=== PATIENT | female | born 1990 | race Caucasian/White ===

== ENCOUNTER → 2018-12-07 | Day surgery (SDC) | payer OTHER ==
--- NOTE | 2018-12-08 17:45 | PATH ---
Surgical Pathology Report Patient Name: SANJU MAN [facility]. Rec. #: [id number] /Age/Gender: 1990 (Age: 28) / F Account: [id number] Location: [facility]OLOGY [facility] Taken: 12/07/2018 Received: 12/07/2018 Reported: 12/08/2018 Physicians: Debora Uribe M.D. 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 Electronically Signed Leona Tang M.D. Gross Description Received in formalin labeled "left 11:00," are 3 altamirano-yellow, cylindrical portions of fibroadipose tissue ranging from 0.7-0.9 cm in length and averaging 0.1 cm in diameter. The specimens are submitted in toto in one cassette. Time to formalin fixation: Less than one minute Total formalin fixation time: Approximately 8 hours. /12/07/2018 [facility]/12/07/2018
== END | disposition home or self-care (01) ==
LOC: JRADUS 08:50 → JRADUS-SUR 08:50
PROVIDERS: ATTEND Obstetrics & Gynecology
PROC: 0HBU3ZX Excision of Left Breast, Percutaneous Approach, Diagnostic (ICD-10-PCS; principal; 2018-12-07)
DX: D24.2 Benign neoplasm of left breast (principal)
CPT/HCPCS: 19083; 87899; 88305-TC; A4648

== ENCOUNTER 2020-02-08 16:45 | Inpatient (IN) | payer OTHER ==
[2020-02-08 18:18] LABS: BASO % 0.2 % (0-2.0); EOS % 0.9 % (0-4.5); HEMATOCRIT 38.5 % (32.4-45.2); HEMOGLOBIN 13.1 GM/dL (10.7-15.3); LYMPH % 19.2 % (8-40); MCH 29.9 pg (25.7-33.7); MEAN CELL VOLUME 87.8 fl (80-96); MEAN PLT VOLUME 9.7 fl (7.5-11.1); MONO % 5.2 % (3.8-10.2); NEUT % 74.5 % (42.8-82.8); PLATELET COUNT 200 K/MM3 (134-434); RBC 4.38 M/mm3 (3.60-5.2); RDW 13.4 % (11.6-15.6); WHITE BLOOD COUNT 13.7 K/mm3 (4.0-10.0)
[2020-02-08 18:22] LABS: INR 0.87 (0.83-1.09); PROTHROMBIN TIME (PATIENT) 10.2 SEC (9.7-13.0)
[2020-02-08 18:25] LABS: ACTIVATED PTT 23.1 SECONDS (25.2-36.5)
--- OUTSIDE RECORDS SUMMARY | 2020-02-08 18:30 | XMS ---
:1990 Author Organization [facility] Support Name Relationship Address Phone LA BARGE JANE Unavailable [address] [place] [address] CHERRI Unavailable Unavailable Unavailable CHARLOTTE MAN BROTHER [address] [place] [address] Re-disclosure Warning The records that you are about to access may contain information from federally- assisted alcohol or drug abuse programs. If such information is present, then the following federally mandated warning applies: This information has been disclosed to you from records protected by federal confidentiality rules (42 CFR part 2). The federal rules prohibit you from making any further disclosure of this information unless further disclosure is expressly permitted by the written consent of the person to whom it pertains or as otherwise permitted by 42 CFR part 2. A general authorization for the release of medical or other information is NOT sufficient for this purpose. The Federal rules restrict any use of the information to criminally investigate or prosecute any alcohol or drug abuse patient.The records that you are about to access may contain highly sensitive health information, the redisclosure of which is protected by Article 27-F of the [facility] Public Health law. If you continue you may haveaccess to information: Regarding HIV / AIDS; Provided by facilities licensed or operated by the [facility] Office of Mental Health; or Provided by the [facility] Office for People With Developmental Disabilities. If such information is present, then the following [facility] mandated warning applies: This information has been disclosed to you from confidential records which are protected by state law. State law prohibits you from making any further disclosure of this information without the specific written consent of the person to whom it pertains, or as otherwise permitted by law. Any unauthorized further disclosure in violation of state law may result in a fine or shelter sentence or both. A general authorization for the release of medical or other information is NOT sufficient authorization for further disclosure. Insurance Providers Payer name Policy type Policy ID Covered Covered alliance party's Policy P sandi / Coverage alliance party ID relationship to Rick Inf ormation type rick SELF PAY INSURANCE [employer] [id number] SP [id number] BROTHERS Results ID Date Data Source [id number] 12/27/2019 07:47:00 PM EDT [facility] Name Value Range Interpretation Code Description Data Stephanie rce(s) Supporting Document(s ) SARS-COV-2 [facility] QL TERRIE+PROBE This lab was ordered by [facility] KATT DOUGLAS and reported by [facility]. Procedure
[2020-02-08 18:51] LABS: BLOOD UREA NITROGEN 12.3 mg/dL (7-18); CALCIUM 9.3 mg/dL (8.5-10.1); CREATININE 0.9 mg/dL (0.55-1.3); POTASSIUM 3.8 mmol/L (3.5-5.1)
[2020-02-08] MEDS ORDERED: CITRIC ACID/SODIUM CITRATE 30 ML UNIT-DOSE CUP PO ONE (19:40)
[2020-02-08] MEDS ORDERED: METHYLERGONOVINE MALEATE 0.2 MG/1 ML AMP IM PRN (19:43)
[2020-02-08] MEDS ORDERED: BENZOCAINE 28 GM HEMORRHOIDAL OINTMENT PR PRN (19:43)
[2020-02-08] MEDS ORDERED: WITCH HAZEL 50% (TUCKS) 40 PAD/JAR PAD TP PRN (19:43)
[2020-02-08] MEDS ORDERED: diphenhydrAMINE HCL 25 MG CAPSULE (FP) PO PRN (19:43)
[2020-02-08] MEDS ORDERED: BENZOCAINE 20% 57 GM BOTTLE TP PRN (19:43)
[2020-02-08] MEDS ORDERED: ELECTROLYTE-148 SOLN 1,000 ML IV SCH (19:45)
--- NOTE | 2020-02-08 19:52 | HP ---
Past Medical History - Primary Care Physician PCP:: Jenny Thorne - Admission Chief Complaint: IUP at 40 week. obesity. Desires Section History of Present Illness: 29 yo G 1 EDC 02/08/2020 EGA 40 with obesity who desires CS History Source: Patient Limitations to Obtaining History: No Limitations - Past Medical History ...: 1 ...Para: 0 ...Term: 0 ...: 0 ...Spon : 0 ...Induced : 0 ...Living Children: 0 ...Multiple Gestation: 0 ... Weeks Gestation by Dates: 40.0 ...EDC by Dates: 02/08/20 - Past Surgical History Past Surgical History: Yes: None - Smoking History Smoking history: Never smoked - Alcohol/Substance Use Hx Alcohol Use: No History of Substance Use: reports: None Home Medications - Allergies Allergies/Adverse Reactions: Allergies Allergy/AdvReac Type Severity Reaction Status Date / Time No Known Allergies Allergy Verified 02/08/20 17:33 - Home Medications Home Medications: Ambulatory Orders Vitamins (Sjr) - 1 tab PO DAILY 02/08/20 Review of Systems - Review of Systems Constitutional: reports: No Symptoms Eyes: reports: No Symptoms HENT: reports: No Symptoms Neck: reports: No Symptoms Cardiovascular: reports: No Symptoms Respiratory: reports: No Symptoms Gastrointestinal: reports: No Symptoms Genitourinary: reports: No Symptoms Breasts: reports: No Symptoms Reported Musculoskeletal: reports: No Symptoms Integumentary: reports: No Symptoms Neurological: reports: No Symptoms Endocrine: reports: No Symptoms Hematology/Lymphatic: reports: No Symptoms Psychiatric: reports: No Symptoms Physical Exam - Maternity Vital Signs: Vital Signs Temperature 98.6 F 02/08/20 17:41 Pulse Rate 95 H 02/08/20 17:41 Respiratory Rate 17 02/08/20 17:41 Blood Pressure 117/51 L 02/08/20 17:41 O2 Sat by Pulse Oximetry (%) - Labs Lab Results: CBC, BMP 02/08/20 17:00 02/08/20 17:00 Hemorrhage Risk Assessment - Risk Factors Risk Score: 0 Risk Level: Low Risk Problem List - Problems (1) Obesity affecting in third trimester Code(s): O99.213 - OBESITY COMPLICATING , THIRD TRIMESTER (2) 40 weeks gestation of Code(s): Z3A.40 - 40 WEEKS GESTATION OF (3) Delivery by elective section Code(s): O82 - ENCOUNTER FOR DELIVERY WITHOUT INDICATION Assessment/Plan IUP at 40 week obesity desires CS Plan Section
[2020-02-08] MEDS ORDERED: OXYTOCIN 20 UNITS in 0.9% NS 20 UNIT/1,000 ML INFUS.BAG IV ONE ×2 (20:21→20:30)
[2020-02-08] MEDS ORDERED: CEFAZOLIN 2 GM/D5W 2 GM/50 ML ML IVPB ONE (20:30)
[2020-02-08] MEDS ORDERED: morphine SULFATE/PF 0.5 MG/ML (2cc Syringe - QUVA) ONE (20:32)
[2020-02-08] MEDS ORDERED: PHENYLEPHRINE HCL 10 MG/1 ML SINGLE DOSE VIAL ONE (20:41)
[2020-02-08] MEDS ORDERED: OXYTOCIN 10 UNITS/ML VIAL ONE (20:51)
[2020-02-08] MEDS ORDERED: KETOROLAC TROMETHAMINE 30 MG/1 ML VIAL ONE (20:56)
[2020-02-08] MEDS: OXYTOCIN 20 UNITS in 0.9% NS 20 UNIT/1,000 ML INFUS.BAG IV SCH (21:30)
[2020-02-08] MEDS ORDERED: IBUPROFEN 600 MG TABLET (FP) PO PRN (21:37)
[2020-02-08] MEDS ORDERED: ONDANSETRON 4 MG/2 ML VIAL IVPUSH PRN (21:37)
[2020-02-08] MEDS ORDERED: ACETAMINOPHEN 325 MG TABLET (FP) PO PRN (21:37)
[2020-02-08 22:07] LABS: CORD BASE EXCESS -5.5 mmol/L (0-2); CORD HCO3 20.5 mmHg (20-29); CORD PCO2 41.8 mmHg (30-78); CORD PCO2 51.4 mmHg (30-78); CORD pH 7.229 (7.14-7.44); CORD pH 7.308 (7.14-7.44)
--- NOTE | 2020-02-08 22:11 | OP ---
Operative Note - Note: Operative Date: 02/08/20 Pre-Operative Diagnosis: obesity in pregancy. elective section. 40 week Operation: Low transverse section Findings: live infant Post-Operative Diagnosis: Same as Pre-op Surgeon: Jenny Thorne Embryology Professor: Rey Ramos Anesthesia: Spinal Estimated Blood Loss (mls): 700 Operative Report Dictated: Yes
[2020-02-08] MEDS: IBUPROFEN 800 MG/8 ML IJ IVPB PRN (22:19)
[2020-02-08] MEDS ORDERED: IBUPROFEN 800 MG/8 ML IJ IVPB ONE (22:21)
[2020-02-09] MEDS: IBUPROFEN 800 MG/8 ML IJ IVPB PRN (06:14)
--- NOTE | 2020-02-09 06:59 | PN ---
Progress Note (SOAP) - Subjective Chief Complaint: Pt doing well - Current Medications Current Medications: Active Medications Acetaminophen (Tylenol -) 650 mg PO Q4H PRN PRN Reason: FEVER Acetaminophen (Tylenol -) 650 mg PO Q4H PRN PRN Reason: PAIN-PACU Benzocaine (Americaine 20% [place] -) 1 spray TP PRN PRN PRN Reason: Pain - Topical Benzocaine (Americaine Ointment -) 1 applic DE PRN PRN PRN Reason: Pain - Topical Bisacodyl (Dulcolax Suppository -) 10 mg DE PRN PRN PRN Reason: CONSTIPATION Diphenhydramine HCl (Benadryl -) 25 mg PO Q6H PRN PRN Reason: FOR ITCHING Hydromorphone HCl (Dilaudid -) 4 mg PO Q4H PRN PRN Reason: PAIN LEVEL 7 - 10 Stop: 02/10/20 19:42 Oxytocin/Sodium Chloride (Normal Saline+20 Units Oxytocin -) 20 unit in 1,000 mls @ 125 mls/hr IV [facility]IR [facility] Last Admin: 02/08/20 21:30 Dose: 125 mls/hr Documented by: Ibuprofen (Motrin -) 600 mg PO Q4H PRN PRN Reason: FEVER Ibuprofen (Caldolor Injection -) 800 mg IVPB Q6H PRN PRN Reason: Fever - If PO not effective. Last Admin: 02/09/20 06:14 Dose: 800 mg Documented by: Ibuprofen (Motrin -) 600 mg PO Q4H PRN PRN Reason: PAIN-PACU Methylergonovine Maleate (Methergine Injection -) 0.2 mg IM Q4H PRN PRN Reason: EXCESSIVE BLEEDING Ondansetron HCl (Zofran Injection) 4 mg IVPUSH Q4H PRN PRN Reason: NAUSEA Oxycodone HCl (Roxicodone -) 5 mg PO Q4H PRN PRN Reason: PAIN LEVEL 1 - 3 Oxycodone HCl (Roxicodone -) 10 mg PO Q4H PRN PRN Reason: PAIN LEVEL 4 - 6 Senna/Docusate Sodium (Pericolace -) 2 tablet PO HS PRN PRN Reason: CONSTIPATION Simethicone (Mylicon -) 80 mg PO Q4H PRN PRN Reason: GAS Witch Antoinette/Glycerin (Tucks Pads -) 1 pad TP PRN PRN PRN Reason: Pain - Topical - Objective Vital Signs: Vital Signs Temperature 98.6 F 02/09/20 06:19 Pulse Rate 74 02/09/20 06:19 Respiratory Rate 20 02/09/20 06:19 Blood Pressure 95/64 02/09/20 06:19 O2 Sat by Pulse Oximetry (%) 98 02/08/20 23:49 Constitutional: Yes: Well Nourished, No Distress Gastrointestinal: Yes: WNL, Soft ....Post : Yes: Uterus firm, Uterus non-tender Labs Lab Results: CBCD WBC 13.7 K/mm3 (4.0-10.0) H 02/08/20 17:00 RBC 4.38 M/mm3 (3.60-5.2) 02/08/20 17:00 Hgb 13.1 GM/dL (10.7-15.3) 02/08/20 17:00 Hct 38.5 % (32.4-45.2) 02/08/20 17:00 MCV 87.8 fl (80-96) 02/08/20 17:00 MCHC 34.0 g/dl (32.0-36.0) 02/08/20 17:00 RDW 13.4 % (11.6-15.6) 02/08/20 17:00 Plt Count 200 K/MM3 (134-434) 02/08/20 17:00 MPV 9.7 fl (7.5-11.1) 02/08/20 17:00 CMP Sodium 136 mmol/L (136-145) 02/08/20 17:00 Potassium 3.8 mmol/L (3.5-5.1) 02/08/20 17:00 Chloride 103 mmol/L (98-107) 02/08/20 17:00 Carbon Dioxide 20 mmol/L (21-32) L 02/08/20 17:00 Anion Gap 13 MMOL/L (8-16) 02/08/20 17:00 BUN 12.3 mg/dL (7-18) 02/08/20 17:00 Creatinine 0.9 mg/dL (0.55-1.3) 02/08/20 17:00 Random Glucose 70 mg/dL (74-106) L 02/08/20 17:00 Calcium 9.3 mg/dL (8.5-10.1) 02/08/20 17:00 Problem List - Problems (1) Obesity affecting in third trimester Problems reviewed: Yes Code(s): O99.213 - OBESITY COMPLICATING , THIRD TRIMESTER (2) 40 weeks gestation of Problems reviewed: Yes Code(s): Z3A.40 - 40 WEEKS GESTATION OF (3) Delivery by elective section Problems reviewed: Yes Code(s): O82 - ENCOUNTER FOR DELIVERY WITHOUT INDICATION Assessment/Plan POd 1 stqable Plan CBC OOB ambulate
--- NOTE | 2020-02-09 08:10 | PN ---
Progress Note (short form) - Note Progress Note: Anesthesia Post op/Pain Pt seen and examined S:Alert and awake comfortable O: Vital Signs Temperature 98.6 F 02/09/20 06:19 Pulse Rate 74 02/09/20 06:19 Respiratory Rate 02/09/20 06:19 Blood Pressure 95/64 02/09/20 06:19 O2 Sat by Pulse Oximetry (%) 98 02/08/20 23:49 CBC, BMP 02/08/20 17:00 02/08/20 17:00 A/P: Current Active Problems 40 weeks gestation of (Acute) Delivery by elective section (Acute) Obesity affecting in third trimester (Acute) s/p c section Doing well post op Continue current care Magan Guerrero MD
[2020-02-09 08:40] LABS: HEMATOCRIT 30.6 % (32.4-45.2); HEMOGLOBIN 10.5 GM/dL (10.7-15.3); MCH 30.2 pg (25.7-33.7); MCHC 34.2 g/dl (32.0-36.0); MEAN CELL VOLUME 88.3 fl (80-96); MEAN PLT VOLUME 9.5 fl (7.5-11.1); PLATELET COUNT 156 K/MM3 (134-434); RBC 3.46 M/mm3 (3.60-5.2); RDW 13.6 % (11.6-15.6); WHITE BLOOD COUNT 14.3 K/mm3 (4.0-10.0)
[2020-02-09] MEDS: ACETAMINOPHEN 325 MG TABLET (FP) PO PRN ×2 (13:03→21:07)
[2020-02-09] MEDS: SIMETHICONE 80 MG TAB.CHEW (FP) PO PRN ×2 (13:04→21:06)
[2020-02-09] MEDS: IBUPROFEN 600 MG TABLET (FP) PO PRN ×2 (13:04→21:07)
[2020-02-09] MEDS ORDERED: BISACODYL 10 MG SUPP.RECT PR PRN (19:43)
[2020-02-09] MEDS ORDERED: oxyCODONE HCL 5 MG TABLET PO PRN ×2 (19:43)
[2020-02-09] MEDS ORDERED: HYDROmorphone HCL 2 MG TABLET PO PRN (19:43)
[2020-02-09] MEDS: OXYTOCIN 20 UNITS in 0.9% NS 20 UNIT/1,000 ML INFUS.BAG IV SCH (22:11)
[2020-02-10] MEDS: IBUPROFEN 600 MG TABLET (FP) PO PRN ×5 (04:31→21:33)
[2020-02-10] MEDS: ACETAMINOPHEN 325 MG TABLET (FP) PO PRN ×4 (04:32→21:34)
[2020-02-10] MEDS: SIMETHICONE 80 MG TAB.CHEW (FP) PO PRN ×4 (04:32→21:33)
[2020-02-10] MEDS ORDERED: SENNOSIDES/DOCUSATE COMBO (SENNA PLUS) TABLET (UD) PO PRN (22:00)
--- NOTE | 2020-02-11 05:15 | PN ---
Post Note - Post Date of Delivery: 02/08/20 Post Day: 2 Vital Signs: Vital Signs - 24 hr 02/10/20 02/10/20 10:00 22:00 Temperature 98.8 F 98.7 F Pulse Rate 76 82 Respiratory 20 18 Rate Blood Pressure 111/67 97/37 L O2 Sat by Pulse 99 Oximetry (%) - Subjective Subjective: No Complaints - Objective Afebrile: Yes Breast: Not engorged Abdomen: Soft, Other (incision intact) Uterus: Fundus firm, Non-tender Vagina: Scant lochia Extremities: Non-tender - Assessment/Plan (1) Obesity affecting in third trimester Assessment: Other (POD 2) (3) Delivery by elective section Assessment: Other (POD2 SP VS) Plan: Routine Care
--- NOTE | 2020-02-11 05:16 | PN ---
Progress Note (SOAP) - Subjective Chief Complaint: Pt doing well - Current Medications Current Medications: Active Medications Acetaminophen (Tylenol -) 650 mg PO Q4H PRN PRN Reason: FEVER Last Admin: 02/10/20 21:34 Dose: 650 mg Documented by: Acetaminophen (Tylenol -) 650 mg PO Q4H PRN PRN Reason: PAIN-PACU Last Admin: 02/10/20 09:06 Dose: 650 mg Documented by: Benzocaine (Americaine 20% [place] -) 1 spray TP PRN PRN PRN Reason: Pain - Topical Benzocaine (Americaine Ointment -) 1 applic GA PRN PRN PRN Reason: Pain - Topical Bisacodyl (Dulcolax Suppository -) 10 mg GA PRN PRN PRN Reason: CONSTIPATION Diphenhydramine HCl (Benadryl -) 25 mg PO Q6H PRN PRN Reason: FOR ITCHING Oxytocin/Sodium Chloride (Normal Saline+20 Units Oxytocin -) 20 unit in 1,000 mls @ 125 mls/hr IV ASDIR [facility] Last Admin: 02/09/20 22:11 Dose: Not Given Documented by: Ibuprofen (Motrin -) 600 mg PO Q4H PRN PRN Reason: FEVER Last Admin: 02/10/20 21:33 Dose: 600 mg Documented by: Ibuprofen (Motrin -) 600 mg PO Q4H PRN PRN Reason: PAIN-PACU Methylergonovine Maleate (Methergine Injection -) 0.2 mg IM Q4H PRN PRN Reason: EXCESSIVE BLEEDING Ondansetron HCl (Zofran Injection) 4 mg IVPUSH Q4H PRN PRN Reason: NAUSEA Oxycodone HCl (Roxicodone -) 5 mg PO Q4H PRN PRN Reason: PAIN LEVEL 1 - 3 Oxycodone HCl (Roxicodone -) 10 mg PO Q4H PRN PRN Reason: PAIN LEVEL 4 - 6 Senna/Docusate Sodium (Pericolace -) 2 tablet PO HS PRN PRN Reason: CONSTIPATION Last Admin: 02/10/20 21:36 Dose: 2 tablet Documented by: Simethicone (Mylicon -) 80 mg PO Q4H PRN PRN Reason: GAS Last Admin: 02/10/20 21:33 Dose: 80 mg Documented by: Cherri Curry/Glycerin (Tucks Pads -) 1 pad TP PRN PRN PRN Reason: Pain - Topical - Objective Vital Signs: Vital Signs Temperature 98.7 F 02/10/20 22:00 Pulse Rate 82 02/10/20 22:00 Respiratory Rate 18 02/10/20 22:00 Blood Pressure 97/37 L 02/10/20 22:00 O2 Sat by Pulse Oximetry (%) 99 02/10/20 10:00 Constitutional: Yes: Well Nourished, No Distress, Calm ....Post : Yes: Uterus firm, Uterus non-tender Breast(s): Yes: WNL Extremities: Yes: WNL Peripheral Pulses WNL: No Edema: No Wound/Incision: Yes: Steri Strips, Open to air Neurological: Yes: WNL, Alert, Oriented Labs Lab Results: CBCD WBC 14.3 K/mm3 (4.0-10.0) H 02/09/20 08:05 RBC 3.46 M/mm3 (3.60-5.2) L 02/09/20 08:05 Hgb 10.5 GM/dL (10.7-15.3) L 02/09/20 08:05 Hct 30.6 % (32.4-45.2) L D 02/09/20 08:05 MCV 88.3 fl (80-96) 02/09/20 08:05 MCHC 34.2 g/dl (32.0-36.0) 02/09/20 08:05 RDW 13.6 % (11.6-15.6) 02/09/20 08:05 Plt Count 156 K/MM3 (134-434) D 02/09/20 08:05 MPV 9.5 fl (7.5-11.1) 02/09/20 08:05 CMP Sodium 136 mmol/L (136-145) 02/08/20 17:00 Potassium 3.8 mmol/L (3.5-5.1) 02/08/20 17:00 Chloride 103 mmol/L (98-107) 02/08/20 17:00 Carbon Dioxide 20 mmol/L (21-32) L 02/08/20 17:00 Anion Gap 13 MMOL/L (8-16) 02/08/20 17:00 BUN 12.3 mg/dL (7-18) 02/08/20 17:00 Creatinine 0.9 mg/dL (0.55-1.3) 02/08/20 17:00 Random Glucose 70 mg/dL (74-106) L 02/08/20 17:00 Calcium 9.3 mg/dL (8.5-10.1) 02/08/20 17:00 Problem List - Problems (1) Obesity affecting in third trimester Code(s): O99.213 - OBESITY COMPLICATING , THIRD TRIMESTER (2) 40 weeks gestation of Code(s): Z3A.40 - 40 WEEKS GESTATION OF (3) Delivery by elective section Problems reviewed: Yes Code(s): O82 - ENCOUNTER FOR DELIVERY WITHOUT INDICATION Assessment/Plan POd 3 SP CS stable Plan DC Home
[2020-02-11] MEDS: ACETAMINOPHEN 325 MG TABLET (FP) PO PRN ×2 (06:40→11:00)
[2020-02-11] MEDS: SIMETHICONE 80 MG TAB.CHEW (FP) PO PRN (06:40)
[2020-02-11] MEDS: IBUPROFEN 600 MG TABLET (FP) PO PRN (06:41)
[2020-02-11 08:33] LABS: HEMATOCRIT 32.1 % (32.4-45.2); HEMOGLOBIN 10.7 GM/dL (10.7-15.3); MCH 29.9 pg (25.7-33.7); MCHC 33.4 g/dl (32.0-36.0); MEAN CELL VOLUME 89.4 fl (80-96); MEAN PLT VOLUME 9.1 fl (7.5-11.1); PLATELET COUNT 189 K/MM3 (134-434); RBC 3.59 M/mm3 (3.60-5.2); WHITE BLOOD COUNT 12.9 K/mm3 (4.0-10.0)
[2020-02-11 10:02] VITALS: BP 107/66; PULSE 79; TEMP 98.6
--- NOTE | 2020-02-13 09:50 | OP ---
DATE OF OPERATION: 02/08/2020 PREOPERATIVE DIAGNOSIS: Obesity in , elective section. OPERATION: Low transverse primary section. POSTOPERATIVE DIAGNOSIS: Live female infant. SURGEON: Alejandra Thorne MD [employer] SPECIALIST: JULIO Choi; unavailable. ANESTHESIA: Spinal. PROCEDURE: Patient was taken to the operating room, placed in the supine position, prepped and draped in the usual sterile fashion. Timeout was performed in accordance with hospital regulation. Scalpel was then used to make a Pfannenstiel skin incision. Cautery was then used to go through the layers of the abdominal wall to the level of the fascia. Fascia was cut in the midline and cautery was then used to open the fascia in smiling fashion. Randell was then used to bluntly and sharply dissect the rectus muscle off the fascia. Muscle was split in the midline. Peritoneal cavity was then entered and carried up and downward. Bladder retractor was then placed. Scalpel was then used to make a low transverse uterine incision. Incision was carried upward using bandage scissors. A live female was delivered in OP position. Nose and mouth suction performed. Shoulders were delivered without difficulty. Cord was clamped and cut. Cord blood obtained. Cord pH obtained. Placenta was manually extracted from the uterus. was handed to van cdl driver. The uterus was exteriorized and cleaned with clean lap pads. Uterine incision was then closed using 0 Biosyn suture, first layer continuous interlocking, second layer imbricating the first layer. Hemostasis was achieved. [id number] sutures were done for hemostasis. Uterus interiorized. Abdominal cavity cleaned with clean lap pads. Peritoneum was closed using 0 Biosyn suture. Muscle was approximated in the midline using 0 Biosyn suture. Fascia was then closed using 0 Biosyn suture in 2 parts. Skin was then closed using 3-0 Vicryl in subcuticular fashion. Wound was washed and dressed. Patient tolerated procedure well. Estimated blood loss 700 mL. ALEJANRDA THRONE M.D. [id number]
--- NOTE | 2020-02-16 18:47 | PATH ---
Surgical Pathology Report Patient Name: SANJU MAN Med. Rec. #: [id number] /Age/Gender: 1990 (Age: 29) / F Account: [id number] Location: [facility] OBS/TAG WRITER Taken: 02/08/2020 Received: 02/09/2020 Reported: 02/16/2020 Physicians: Jenny Thorne M.D. Specimen(s) Received PLACENTA Clinical History , 40 weeks, obesity in Final Diagnosis PLACENTA, SECTION: 410 G THIRD TRIMESTER PLACENTA WITH TRIVASCULAR UMBILICAL CORD AND UNREMARKABLE PLACENTAL MEMBRANES. Electronically Signed Leona Tang M.D. Gross Description The specimen is received fresh labeled placenta and is a 410 gram, 14.5 x 11.5 x 3.3 cm. placenta with attached membranes and umbilical cord. The attached membranes are altamirano, translucent with focal opacities and insert marginally. The umbilical cord measures 10.5 cm. in length and averages 0.9 cm. in diameter. The cord inserts eccentrically, 2.5 cm. to the nearest margin. No true knots or strictures are identified. Cut surface of the umbilical cord reveals 3 vessels. The surface is alanis-blue with minimal fibrin deposition and appropriate caliber vessels. The maternal surface is red-brown with focal defects. Sectioning reveals red-brown, spongy parenchyma. No lesions are identified. Sales Trader sections are submitted in three cassettes as follows: 1- membrane rolls and umbilical cord; 2-3- full thickness sections of placenta. 02/14/2020 [facility]02/14/2020
== END 2020-02-11 11:30 | disposition home or self-care (01) | DRG 788 ==
LOC: JLDR 16:45 → J3W 23:20
PROVIDERS: ADMIT Obstetrics & Gynecology; ATTEND Obstetrics & Gynecology
PROC: 10D00Z1 Extraction of Products of Conception, Low, Open Approach (ICD-10-PCS; principal; 2020-02-08)
DX: O82 Encounter for cesarean delivery without indication (principal); O48.0 Post-term pregnancy; O99.213 Obesity complicating pregnancy, third trimester; E66.9 Obesity, unspecified; Z37.0 Single live birth; Z3A.40 40 weeks gestation of pregnancy
CPT/HCPCS: 36415; 36600; 80048; 82803; 85025; 85027; 85461; 85610; 85730; 86780; 86850; 86900; 86901; 87389; 88307-TC; U0003

== ENCOUNTER 2021-03-31 05:19 | Emergency (ER) | payer OTHER ==
[2021-03-31 05:41] VITALS: BP 118/77; PULSE 78; TEMP 98; BMI 25.1
== END 2021-03-31 06:43 | disposition home or self-care (01) ==
LOC: JER 05:19
DX: R07.89 Other chest pain (principal)
CPT/HCPCS: 71046-TC-FY; 93005; 93010; 99284-25

== ENCOUNTER 2022-09-17 10:18 | Emergency (ER) | payer OTHER ==
[2022-09-17 10:22] VITALS: BMI 26.0
[2022-09-17] MEDS ORDERED: ACETAMINOPHEN 1000 MG/100 ML BAG IVPB ONE (10:42)
[2022-09-17] MEDS ORDERED: morphine CARPU-JECT 4 MG/1 ML DISP.SYRIN IVPUSH ONE (10:42)
[2022-09-17] MEDS ORDERED: SODIUM CHLORIDE 0.9% 1000 ML INFUS.BAG IV ONE ×2 (10:42→14:11)
[2022-09-17] MEDS ORDERED: ACETAMINOPHEN INJECTION 100 ML IVPB ONE (10:53)
[2022-09-17] MEDS ORDERED: morphine SULFATE 4 MG/ML VIAL ONE (10:53)
[2022-09-17 11:39] LABS: BASO % 0.6 % (0-2.0); HEMATOCRIT 38.3 % (32.4-45.2); HEMOGLOBIN 13.3 GM/dL (10.7-15.3); LYMPH % 20.2 % (8-40); MCH 29.8 pg (25.7-33.7); MCHC 34.8 g/dl (32.0-36.0); MEAN CELL VOLUME 85.5 fl (80-96); MEAN PLT VOLUME 9.5 fl (7.5-11.1); MONO % 5.8 % (3.8-10.2); NEUT % 72.4 % (42.8-82.8); PLATELET COUNT 247 10^3/uL (134-434); RBC 4.47 M/mm3 (3.60-5.2); RDW 12.7 % (11.6-15.6); WHITE BLOOD COUNT 10.4 K/mm3 (4.0-10.0)
[2022-09-17 11:43] LABS: EPI CELLS 13 /uL (0-25.1); HYALINE CASTS 1 /uL (0-3.1); URINE APPEARANCE CLEAR; URINE BACTERIA 59 /uL (0-1359); URINE BILIRUBIN NEGATIVE (NEGATIVE); URINE COLOR YELLOW; URINE GLUCOSE (UA) NEGATIVE (NEGATIVE); URINE KETONE NEGATIVE (NEGATIVE); URINE LEUK ESTERASE NEGATIVE (NEGATIVE); URINE NITRITE NEGATIVE (NEGATIVE); URINE PROTEIN NEGATIVE (NEGATIVE); URINE RBC 14 /uL (0-23.9); URINE UROBILINOGEN 0.2 mg/dL (0.2-1.0); URINE WBC 3 /uL (0-25.8)
[2022-09-17 11:44] LABS: HCG,QUALITATIVE URINE Negative
[2022-09-17 12:10] LABS: POTASSIUM 3.8 mmol/L (3.5-5.1)
[2022-09-17 12:12] LABS: ALBUMIN 3.6 g/dl (3.4-5.0); BLOOD UREA NITROGEN 10.6 mg/dL (7-18); CALCIUM 8.8 mg/dL (8.5-10.1)
[2022-09-17 12:15] LABS: CREATININE 0.9 mg/dL (0.55-1.3)
[2022-09-17 12:16] LABS: BILIRUBIN,TOTAL 0.4 mg/dL (0.2-1); TOT PROT 6.6 g/dl (6.4-8.2)
[2022-09-17] MEDS ORDERED: KETOROLAC TROMETHAMINE 30 MG/1 ML VIAL IVPUSH ONE (14:11)
[2022-09-17] MEDS ORDERED: KETOROLAC TROMETHAMINE 30 MG/1 ML VIAL ONE (14:25)
[2022-09-17 15:20] VITALS: BP 102/61; PULSE 76; RESP 16; TEMP 98.1
== END 2022-09-17 16:48 | disposition home or self-care (01) ==
LOC: JER 10:18
PROC: 3E033NZ Introduction of Analgesics, Hypnotics, Sedatives into Peripheral Vein, Percutaneous Approach (ICD-10-PCS; principal; 2022-09-17)
PROC: 3E0333Z Introduction of Anti-inflammatory into Peripheral Vein, Percutaneous Approach (ICD-10-PCS; 2022-09-17)
PROC: 3E033GC Introduction of Other Therapeutic Substance into Peripheral Vein, Percutaneous Approach (ICD-10-PCS; 2022-09-17)
DX: N23 Unspecified renal colic (principal); R10.32 Left lower quadrant pain
CPT/HCPCS: 36415; 74178-TC; 80053; 81003; 84703; 85025; 87086; 99284-25; Q9967

== ENCOUNTER 2023-02-18 22:14 | Emergency (ER) | payer OTHER ==
[2023-02-18 22:23] VITALS: BP 108/74; PULSE 70; RESP 18; TEMP 98.1; BMI 26.5
== END 2023-02-19 01:37 | disposition home or self-care (01) ==
LOC: JERFT 22:14 → JER 22:14 → JERFT 02-19 01:37
DX: K12.0 Recurrent oral aphthae (principal); J03.90 Acute tonsillitis, unspecified; B96.89 Other specified bacterial agents as the cause of diseases classified elsewhere; Z20.822 Contact with and (suspected) exposure to COVID-19
CPT/HCPCS: 0241U-QW; 87651; 99283-25

== ENCOUNTER → 2024-01-07 | Day surgery (SDC) | payer OTHER | END | disposition home or self-care (01) | LOC: JRADUS-SUR 10:05 | PROVIDERS: ATTEND Surgery | PROC: 0H9U3ZX Drainage of Left Breast, Percutaneous Approach, Diagnostic (ICD-10-PCS; principal; 2024-01-07) | DX: N63.20 Unspecified lump in the left breast, unspecified quadrant (principal) | CPT/HCPCS: 19083; 87899; 88305-TC; A4648 ==

== ENCOUNTER 2024-01-30 04:07 | Day surgery (SDC) | payer OTHER ==
[2024-01-30] MEDS ORDERED: LIDOCAINE 1%/EPI 1:100000 (20 ML MULTI DOSE VIAL) ONE (11:01)
[2024-01-30] MEDS ORDERED: LIDOCAINE HCL 1%, 10 MG/ML (20ML VIAL) ONE (11:01)
[2024-01-30] MEDS ORDERED: MIDAZOLAM HCL 2 MG/2 ML SINGLE DOSE VIAL ONE (12:05)
[2024-01-30] MEDS ORDERED: PROPOFOL 40 ML ONE (12:08)
[2024-01-30] MEDS ORDERED: HYDROmorphone HCl 2 MG/ML VIAL ONE (12:16)
[2024-01-30] MEDS: ceFAZolin 2 GRAM PREMIX BAG IVPB ONE (12:17)
[2024-01-30] MEDS ORDERED: BUPIVACAINE HCL/PF 0.5% (5MG/ML) 10 ML VIAL ONE (12:23)
[2024-01-30] MEDS: BUPIVACAINE HCL/PF 0.5% (5MG/ML) 10 ML VIAL IJ ONE (12:30)
[2024-01-30] MEDS ORDERED: ONDANSETRON 4 MG/2 ML VIAL IVPUSH PRN (13:25)
[2024-01-30] MEDS ORDERED: LACTATED RINGERS SOLUTION 1,000 ML IV SCH (13:30)
[2024-01-30] MEDS: ACETAMINOPHEN 500 MG TABLET (FP) PO ONE (14:23)
[2024-01-30 14:47] VITALS: RESP 20
[2024-01-30 16:02] VITALS: BP 118/74; PULSE 85; TEMP 97.3
== END 2024-01-30 15:35 | disposition home or self-care (01) ==
LOC: JASU-SURG 04:07
PROVIDERS: ATTEND Surgery
PROC: 0HBU0ZX Excision of Left Breast, Open Approach, Diagnostic (ICD-10-PCS; principal; 2024-01-30 13:30)
DX: D24.2 Benign neoplasm of left breast (principal)
CPT/HCPCS: 19281; 76098-TC-FY; 81025; 82962; 88307-TC; 94760; A4648